=== PATIENT | male | born 1930 | race Caucasian/White ===

== ENCOUNTER 2016-10-22 17:54 | Inpatient (IN) | payer MEDICARE, MEDICAID ==
[~2016-10-22] VITALS: Ht 170.1 cm; Wt 72.6 kg
--- NOTE | ~2016-10-22 | DS ---
[place], [place] DISCHARGE SUMMARY NAME: GLORIA PARRY [facility] #: [id number] UNIT #: [id number] ROOM: 316 DOCTOR: LISA HOLLOWAY MD BIRTHDATE: [birth year] DOS: 10/26/2016 CHIEF COMPLAINT: "Hey Mr. Holloway, I need to go home." HISTORY OF PRESENT ILLNESS: This is an 86-year-old white male who is a resident at [facility] in [place]. The patient had eloped the facility in an effort to return home and in the course of doing so made multiple physical threats to harm staff, his and whoever else in his way. The patient ended up having to be restrained in the parking lot and became physically aggressive towards others. He was ultimately brought to [facility] to be evaluated. Once there, he was found to be agitated, very angry and irritable and continued to make verbal and physical threats to others. He was [facility] to [facility] to continue to evaluate his lethality and mood lability and also to stabilize on medication and engage in individual and schulte milieu activity. PAST MEDICAL HISTORY: Remarkable for atrial fibrillation, BPH, diabetes, chronic pain, hearing loss, hyperlipidemia, vertigo, and a history of migraines. SUMMARY OF THE HOSPITAL COURSE: The patient was brought into the hospital where his Depakote was discontinued because the level was subtherapeutic. Additionally, his Cymbalta was discontinued and he was started on Remeron 15 mg at bedtime as an antidepressant and this was augmented with Abilify 10 mg at bedtime to also make the antidepressant work faster and be a mood stabilizer. He tolerated the switch over to these medications quite well. Additionally, he was started on Exelon patch 4.6 mg a day. With this change in medication and the chance to process some of the issues that were occurring at [facility], patient did improve. His sleep and appetite normalized. His energy level improved. He was able to attend to his ADLs better. He continued to voice a wish to go home, but was able to be redirected when he was told that this was not happening at this point in time. He tolerated the medications well without any adverse events to the medicines themselves. He had improved sufficiently to be able to return back to a long-term care facility. At this point in time due to his elopement risk and safety issues, it was felt that a locked unit was best. Patient was discharged at this time to a locked unit. MENTAL STATUS AT DISCHARGE: The patient is alert and oriented to person, place, but not necessarily to time. Mood does seem to be strongly trending towards euthymia. Affect is much more appropriate. There is no symptom suggestive of hypomania or vinay. There are no overt auditory or visual hallucinations. No delusions or paranoia were voiced. Short term memory has gaps, otherwise he is intact. 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 PLAN: Scripts have been printed and will be sent with him to the long-term care facility to which he goes. ADDENDUM 10/27/2016 [place], [place] DISCHARGE SUMMARY NAME: GLORIA PARRY UNIT #: [id number] ROOM: [facility] DOCTOR: LISA HOLLOWAY MD BIRTHDATE: [birth year] Addendum on discharge summary on this patient. CHIEF COMPLAINT: "Doc, am I going today." SUMMARY OF THE VISIT: The patient was interviewed as he rested quietly in bed. He engaged readily in conversation, still fixated on going home; however. He has been pleasant and cooperative and has offered no behavioral problems. He seems to be tolerating his current medication regimen well. MENTAL STATUS: He is alert and oriented with time gaps. Mood does seem to be strongly trending towards euthymia and affect is more appropriate. There are no symptoms suggestive of vinay or hypomania. There are no overt auditory or visual hallucinations, delusions or paranoia. Short-term memory has gaps, otherwise he is intact. PLAN: Discharge was held up yesterday due to the fact that we were waiting for placement into a secured unit, given his history of eloping [facility]. It was felt that a locked unit would be best for him to keep him safe and other people safe that seems to be a possible now, we are still awaiting for final confirmation from [facility] in [place]. Once this is done, we will discharge him to that facility. ADDENDUM 10/30/2016 Addendum on discharge summary Date of actual discharge 10/30/2016. Date of proposed discharge 10/26/2016. CHIEF COMPLAINT: "Good morning. Mr. Holloway, how are you today." SUMMARY OF THE VISIT: The patient was interviewed in his room as he rested quietly in bed. He was bright and pleasant. He was hopeful to be able to go home today. He has continued to exhibit very little mood lability and agitation and redirects relatively well. He remains confused and disoriented, but pleasant. MENTAL STATUS SINCE THE PREVIOUS MENTAL STATUS EXAMINATION: Reveals him to be alert and oriented to person, place, but not time. Mood does seem to be strongly trending towards euthymia and affect is much more appropriate. There are no symptoms of vinay or hypomania. There are no acute auditory or visual hallucinations. There are no delusions or paranoia. Short-term memory is exceedingly poor. DIAGNOSIS: Remains the same. PLAN: The patient is to be discharged to [facility] today as long as the [facility] paper work is completed. I will follow him upon his discharge and admission there. [place], [place] DISCHARGE SUMMARY [facility]: [facility] [id number] UNIT #: [id number] ROOM: 316 DOCTOR: LISA HOLLOWAY MD BIRTHDATE: [birth year] LISA HOLLOWAY MD CM:ANDRESARG [id number] LISA HOLLOWAY MD 10/30/16 1251 interface
--- NOTE | ~2016-10-22 | PR ---
[place], [place] PROGRESS NOTE NAME: GLORIA PARRY [facility] #: [id number] UNIT #: [id number] ROOM: 316 DOCTOR: RENÉ SIERRA BIRTHDATE: [birth year] DOS: 10/25/2016 CHIEF COMPLAINT: "Good morning." SUMMARY OF VISIT: The patient assessed in his room where he was getting ready for the morning. Conversation was fine. He is very hard of hearing, and the lights were down low, so he did not have the benefit of reading my lips at times. No behaviors noted from nursing. One of the other patient became agitated with him yesterday, nothing that he did, she was just agitated, he managed it well. MENTAL STATUS: Alert and oriented to person and place, not time. Mood trending towards euthymic. Affect more appropriate. No anger or irritability noted. No auditory or visual hallucinations, paranoia or delusions currently. He did not go on about the long term is trying to poison him. PLAN: I increased his meds yesterday. He seems to have tolerated this well. I am going to leave him where he is at today, see how he does over the next 24 hours, and then if I need to continue to increase, I will go from there. HU SIERRA CNP CM:PNTRANS [id number] RENÉ SIERRA 10/26/16 0059 interface
--- NOTE | ~2016-10-22 | PR ---
[place], [place] PROGRESS NOTE NAME: GLORIA PARRY [facility] #: [id number] UNIT #: [id number] ROOM: 316 DOCTOR: RENÉ SIERRA BIRTHDATE: [birth year] DOS: 10/24/2016 CHIEF COMPLAINT: "Good morning." SUMMARY OF VISIT: The patient was assessed in the dining room where he was waiting for breakfast. He is very hard of hearing, but he engaged in conversation. No voiced complaints from nursing. The patient states that he slept good last night and that he has a good appetite. Good eye contact. Answered my questions with minimal responses, but was engaging. MENTAL STATUS: He is alert and oriented to person, place, not time. Mood, I still think it is a little depressed, but trending towards euthymic. Affect is still a little bit flat, blunted. No anger or irritability noted. He answered my questions and was patient with me when I kept delving a little bit further. No voiced paranoia with regards to the retirement people trying to poison him and plotting against him. PLAN: He did sleep good last night with the Remeron 15 mg at bedtime. It is being augmented with Abilify 10 mg at bedtime, which works as an antidepressant and help decrease the psychosis. I also started him on Exelon patch when he first got here. We will continue with these meds, let me see how he does in next 24 hours since the Remeron and the Abilify were just started and his Depakote was stopped and if I need to increase, I can go from there. We will try to engage in individual and schulte milieu therapy with the plan to discharge when stable. HU SIERRA CNP CM:PNTRANS [id number] RENÉ SIERRA 12/05/16 1453 interface
--- NOTE | ~2016-10-22 | PR ---
[place], [place] PROGRESS NOTE NAME: GLORIA PARRY [facility] #: [id number] UNIT #: [id number] ROOM: 316 DOCTOR: LISA HOLLOWAY MD BIRTHDATE: [birth year] DOS: 10/29/2016 CHIEF COMPLAINT: "Do I get to leave pretty soon, some lady came here and wanted me to move in with her, I am 86 years old, I do not need a woman anymore." HISTORY OF PRESENT ILLNESS: The patient was interviewed in the dining area where he sat having completed his breakfast. He was very talkative and cooperative this morning. He discussed with me he has hope to be able to return home. He did recall that some woman came to talk to him about moving in with her this most likely was the medical collections representative from [facility]. He had construed this as she wanting him to move into her house, he talked at length about his relationship with his and how he feels and most of what is happening is because his wants his money and his land. He was pleasant however and cooperative with me and offered no complaints towards me. There was no agitation or aggression. He responded very well to support and redirection and was able to take the fact that he would not be discharged until Saturday quite well. He reports tolerating his current medication regimen well and reports a good sleep and appetite. He denies pain or discomfort and denies any side effects from the medications themselves. MENTAL STATUS: He is alert and oriented to person, place, but not time. Mood does seem to be strongly trending towards euthymia and affect is more appropriate. There are no symptoms of hypomania or vinay. There are no overt auditory or visual hallucinations. There is a bit of delusional system present, it is unclear how much of this is delusion versus misunderstanding. Short term memory is very poor. Otherwise, he is intact. PLAN: I will go ahead and increase Exelon patch from 4.6 to 9.5 mg a day with the target dose of 13.3 mg a day in mind to maximize potential benefit. My sense is we should be able to discharge then within the next 24 hours to [facility] in [place]. I will continue to engage him in individual and schulte milieu activity until such time. [place], [place] PROGRESS NOTE NAME: GLORIA PARRY UNIT #: [id number] ROOM: 316 DOCTOR: LISA HOLLOWAY MD BIRTHDATE: [birth year] LISA HOLLOWAY MD CM:PNTRANS [id number] LISA HOLLOWAY MD 10/29/16 1324 interface
--- NOTE | ~2016-10-22 | WRIGHTHP ---
[place], [place] PATIENT HISTORY AND PHYSICAL EXAM NAME: GLORIA PARRY UNIT #: [id number] ROOM: 316 DOCTOR: LISA KUO MD BIRTHDATE: [birth year] DOS: 10/23/2016 CHIEF COMPLAINT: "Hey Mr. Kuo, I need to go home." HISTORY OF PRESENT ILLNESS: This is an 86-year-old white male who is a resident of [facility] in [place]. The patient had elope the facility in an effort to return home. In the course of doing so, he made multiple physical threats to harm staff and his who he holds responsible for him being in the longterm. The patient has little insight into his overall physical decline in his inability to take care of himself. He was ultimately restrained after leaving the building and brought to [place] to be evaluated. Once there, he was found to be very agitated, angry and irritable and it was felt that inpatient stabilization was warranted due to the severity of his mood debility, his delusions and his physical aggression and threats to others. PAST MEDICAL HISTORY: Remarkable for atrial fibrillation, BPH, diabetes, chronic pain, hearing loss, hyperlipidemia, vertigo, and migraines. MENTAL STATUS: He is alert and oriented to person, place, but not time. Mood is depressed. Affect is flat and blunted with a constricted range with some irritability and anger noted. There is a great deal of paranoia as he feels the people at the longterm are poisoning him and are plotting against him. Short term memory has gaps. DIAGNOSIS: Major depression, recurrent with psychotic features. PLAN: I will discontinue his Depakote as his level is subtherapeutic and start him simultaneously on Remeron 15 mg at bedtime to combat the affective component, while augmenting this with Abilify 10 mg at bedtime, which will also make the antidepressant work faster as well as decreasing the psychosis. We will engage in individual and schulte milieu therapy. We will need to look for possible alternative placement if he more than likely will require a locked unit to prevent him from eloping and putting himself and others at risk to harm. [place], [place] PATIENT HISTORY AND PHYSICAL EXAM NAME: SOHANGLORIA Fabienne UNIT #: [id number] ROOM: [facility] DOCTOR: LISA KUO MD BIRTHDATE: [birth year] LISA KUO MD CM:HISPHYS:PATIENT HISTORY AND PHYSICAL EXAMINATION [id number] LISA KUO MD 10/23/16 0927 interface
[~2016-10-22 17:54] MED LIST: ACETAMINOPHEN/B1 TA1 PO; ARICEPT10 M1 PO; ASPIRIN CHEWABL81 MG PO; ATIVAN1 MG PO; ATIVAN2 MG/ML IM; COL-RITE100 M1 PO; COLY-MYCIN S OT10 M1 OT; CYMBALTA30 MG PO; CYMBALTA60 MG PO; Diltiazem180 MG PO; GABAPENTIN100 M2 PO; GEODON20 M1 IM; GOOD NEIGHBOR L10 MG PO; MAGNESIUM400 MG PO; MECLIZINE HCL25 M2 PO; METFORMIN HCL500 MG PO; MULTI VITAMINS1 TAB PO; POTASSIUM CHLO20 ME4 PO; PROPAFENONE HC150 MG PO; SENNA8.6 MG PO; SIMVASTATIN40 MG PO; TAMSULOSIN HCL0.4 MG PO; TERAZOSIN HCL10 M1 PO; VITAMIN B121000 MC1 PO; VITAMIN D31000 IU PO; Zostrix 0.1% T
[2016-10-22] MEDS ORDERED: ASPIRIN ADULT L81 M1 PO ×2 (18:18→18:32)
[2016-10-22] MEDS ORDERED: SENNA DOCUSATE1 TAB PO (18:20)
[2016-10-22] MEDS ORDERED: MAGNESIUM400 M1 PO (18:23)
[2016-10-22] MEDS ORDERED: SENNA8.6 MG PO (18:34)
[2016-10-22] MEDS ORDERED: Diltiazem180 MG PO (18:35)
[2016-10-22] MEDS ORDERED: Fioricet 325 MG1 TAB PO (18:39)
[2016-10-22] MEDS ORDERED: NEURONTIN100 MG PO (19:43)
[2016-10-22] MEDS ORDERED: ARICEPT10 M1 PO (19:46)
[2016-10-22 19:51] VITALS: BP 134/65
[2016-10-22] MEDS ORDERED: AFRIN15 ML NS (19:52)
[2016-10-22] MEDS ORDERED: TRAMADOL HCL50 MG PO (19:54)
[2016-10-22] MEDS ORDERED: CLARITIN10 MG PO (21:34)
[2016-10-22] MEDS ORDERED: CYMBALTA60 MG PO (21:47)
[2016-10-22] MEDS ORDERED: CYMBALTA30 MG PO (21:55)
[2016-10-23 07:26] LABS: BASO % 0.4 % (0.0-1.0); EOS # 0.1 10*3/uL (0.0-0.4); EOS % 1.3 % (1.0-4.0); HEMATOCRIT 34.9 % (42.0-52.0); HEMOGLOBIN 11.2 g/dl (14.0-18.0); LYMPH # 3.1 10*3/uL (1.3-4.4); MEAN CELL VOLUME 88.8 fl (80.0-94.0); MEAN CORPUSCULAR HGB 28.5 pg (27.0-31.0); MEAN CORPUSCULAR HGB CONC 32.1 g/dl (33.0-37.0); MEAN PLATELET VOLUME 8.7 fl (9.6-12.3); MONO % 10.5 % (3.0-9.0); NEUT # 5.4 10*3/uL (2.3-7.9); NEUT % 55.6 % (47.0-73.0); PLATELET COUNT AUTOMATED 332 10*3/uL (130-400); RED BLOOD COUNT 3.93 10*6/uL (4.50-5.90); RED CELL DISTRI WIDTH 13.8 % (0-14.5); WHITE BLOOD COUNT 9.8 10*3/uL (4.8-10.8)
[2016-10-23 08:00] VITALS: BP 134/63
[2016-10-23 08:10] LABS: FREE T4 1.23 ng/dl (0.76-1.46); THYROID STIM HORMONE (HS) 1.58 uIU/ml (0.358-4.75)
[2016-10-23 08:21] LABS: ALBUMIN 3.5 gm/dl (3.1-4.5); BILIRUBIN, TOTAL 0.4 mg/dl (0.2-1.0); POTASSIUM 4.1 mmol/L (3.5-5.1); TOTAL PROTEIN 7.3 gm/dL (6.4-8.2)
[2016-10-23 20:01] VITALS: BP 122/54
[2016-10-24 08:00] VITALS: BP 129/58
[2016-10-24 20:01] VITALS: BP 132/55
[2016-10-25 08:28] VITALS: BP 126/71
[2016-10-25 20:15] VITALS: BP 131/60
[2016-10-26 08:01] VITALS: BP 121/67
[2016-10-26] MEDS ORDERED: EXELON4.6 MG/24 T (09:13)
[2016-10-26] MEDS ORDERED: ABILIFY10 MG PO (09:13)
[2016-10-26] MEDS ORDERED: MIRTAZAPINE15 M2 PO (09:13)
[2016-10-26 20:00] VITALS: BP 130/53
[2016-10-27 08:46] VITALS: BP 159/90
[2016-10-27 19:49] VITALS: BP 145/57
[2016-10-28 06:15] LABS: BASO # 0.1 10*3/uL (0.0-0.1); BASO % 0.5 % (0.0-1.0); EOS # 0.3 10*3/uL (0.0-0.4); EOS % 2.7 % (1.0-4.0); HEMATOCRIT 34.5 % (42.0-52.0); HEMOGLOBIN 10.9 g/dl (14.0-18.0); LYMPH # 3.6 10*3/uL (1.3-4.4); LYMPH % 33.9 % (27.0-41.0); MEAN CELL VOLUME 89.6 fl (80.0-94.0); MEAN CORPUSCULAR HGB 28.3 pg (27.0-31.0); MEAN CORPUSCULAR HGB CONC 31.6 g/dl (33.0-37.0); MEAN PLATELET VOLUME 8.4 fl (9.6-12.3); MONO # 1.2 10*3/uL (0.1-1.0); MONO % 11.5 % (3.0-9.0); NEUT # 5.4 10*3/uL (2.3-7.9); NEUT % 51.2 % (47.0-73.0); PLATELET COUNT AUTOMATED 318 10*3/uL (130-400); RED BLOOD COUNT 3.85 10*6/uL (4.50-5.90); RED CELL DISTRI WIDTH 14.3 % (0-14.5); WHITE BLOOD COUNT 10.6 10*3/uL (4.8-10.8)
[2016-10-28 06:55] LABS: POTASSIUM 4.4 mmol/L (3.5-5.1)
[2016-10-28 08:00] VITALS: BP 126/75
[2016-10-28 19:57] VITALS: BP 154/54
[2016-10-29 08:00] VITALS: BP 125/89
[2016-10-29 19:57] VITALS: BP 114/58
[2016-10-30 07:09] LABS: BUN 22 mg/dl (7-24); CARBON DIOXIDE 26 mmol/L (21-32); CHLORIDE 104 mmol/L (98-107); EST GLOM FILT AFRICAN AMERICAN > 60 ml/min; GLUCOSE 126 mg/dL (65-99); POTASSIUM 4.1 mmol/L (3.5-5.1); SODIUM 140 mmol/L (136-145)
[2016-10-30 08:00] VITALS: BP 129/75
== END 2016-10-30 15:15 | DRG 885 ==
LOC: 3N 17:54
PROVIDERS: Internal Medicine
DX: F33.3 Major depressive disorder, recurrent, severe with psychotic symptoms (principal); G30.9 Alzheimer's disease, unspecified; F02.80 Dementia in other diseases classified elsewhere, unspecified severity, without behavioral disturbance, psychotic disturbance, mood disturbance, and anxiety; I48.91 Unspecified atrial fibrillation; E11.9 Type 2 diabetes mellitus without complications; G89.29 Other chronic pain; E78.5 Hyperlipidemia, unspecified; G43.909 Migraine, unspecified, not intractable, without status migrainosus; N40.0 Benign prostatic hyperplasia without lower urinary tract symptoms; Z98.890 Other specified postprocedural states; Z82.49 Family history of ischemic heart disease and other diseases of the circulatory system; Z79.899 Other long term (current) drug therapy